=== PATIENT | male | born 1975 | race Caucasian/White ===

== ENCOUNTER 2018-01-20 06:08 | Day surgery (SDC) | payer OTHER ==
[2018-01-17 15:05] LABS: ALANINE AMINOTRANSFERASE 41 U/L (12-78); ALBUMIN 4.1 g/dL (3.4-5.0); ANION GAP 13 mmol/L (5-15); CALCIUM 8.7 mg/dL (8.5-10.1); CHLORIDE 98 mmol/L (98-107)
[2018-01-17 15:08] LABS: ALKALINE PHOSPHATASE 132 U/L (45-117); BILIRUBIN,TOTAL 0.8 mg/dL (0.2-1.0); CREATININE 1.31 mg/dL (0.7-1.3); TOTAL PROTEIN 8.6 g/dL (6.4-8.2)
[~2018-01-20] VITALS: Ht 177.8 cm; Wt 119.0 kg
[~2018-01-20 06:08] MED LIST: ALBU8.5H8 INH; AMLODIPINE PO; DIOVAN PO; LACT1CAP37 PO; OMEPRAZOLE PO
[2018-01-20 06:23] VITALS: BP 140/87
[2018-01-20] MEDS ORDERED: LACTATED RINGERS 1,000 ML IV SCH (06:27)
[2018-01-20] MEDS ORDERED: BUPIVACAINE/PF-EPI 0.5% 1:200K ONE (06:44)
[2018-01-20] MEDS ORDERED: FENTANYL PF 100 MCG/2ML ONE ×2 (07:12→09:11)
[2018-01-20] MEDS ORDERED: MIDAZOLAM 1 MG/ML, 2ML ONE (07:12)
[2018-01-20] MEDS ORDERED: NEOSTIGMINE 1 MG/ML, 10ML ONE (07:14)
[2018-01-20] MEDS ORDERED: SUCCINYLCHOLINE 20 MG/ML, 10ML ONE (07:14)
[2018-01-20] MEDS ORDERED: DEXAMETHASONE 4 MG/ML, 5ML ONE (07:14)
[2018-01-20] MEDS ORDERED: GLYCOPYRROLATE 0.2MG/1ML, 5ML ONE (07:14)
[2018-01-20] MEDS ORDERED: ROCURONIUM 10 MG/ML,10ML ONE (07:14)
[2018-01-20] MEDS ORDERED: ONDANSETRON 2MG/ML, 2ML ONE (07:14)
[2018-01-20] MEDS ORDERED: CEFAZOLIN 1,000 MG ONE (07:14)
[2018-01-20] MEDS ORDERED: PROPOFOL 10 MG/ML, 20ML ONE (07:14)
[2018-01-20] MEDS ORDERED: ALBUTEROL SULFATE 200 PUFFS/8.5 GR INH ONE (07:14)
[2018-01-20] MEDS ORDERED: FAMOTIDINE 20 MG TABLET PO ONE (07:30)
[2018-01-20] MEDS ORDERED: ONDANSETRON 2MG/ML, 2ML IVPush ONE (07:30)
[2018-01-20] MEDS ORDERED: OXYcodone IR 5MG TABLET PO ONE (07:30)
[2018-01-20] MEDS ORDERED: GABAPENTIN 300 MG CAPSULE PO ONE (07:30)
[2018-01-20] MEDS ORDERED: ACETAMINOPHEN 500 MG TABLET PO ONE (07:30)
[2018-01-20] MEDS ORDERED: BUPIVACAINE/PF-EPI 0.5% 1:200K INFIL ONE (07:55)
[2018-01-20] MEDS ORDERED: ONDANSETRON 2MG/ML, 2ML IV PRN (08:30)
[2018-01-20] MEDS ORDERED: HYDROcodone/APAP 7.5-325MG/15ML UDC PO PRN (08:30)
[2018-01-20] MEDS ORDERED: hydrALAzine 20 MG/ML, 1ML IV PRN (08:30)
[2018-01-20] MEDS ORDERED: PROMETHAZINE 25 MG/ML, 1ML IV PRN (08:30)
[2018-01-20] MEDS ORDERED: MIDAZOLAM 1 MG/ML, 2ML IV PRN (08:30)
[2018-01-20] MEDS ORDERED: ALBUTEROL SULFATE 2.5 MG/3 ML NPPB PRN (08:30)
[2018-01-20] MEDS ORDERED: HYDROmorphone 1 MG/ML, 1ML IV PRN (08:30)
[2018-01-20] MEDS ORDERED: MEPERIDINE/PF 25MG/0.5ML IVPush PRN (08:30)
[2018-01-20] MEDS ORDERED: LABETALOL 5MG/ML, 20ML IV PRN (08:30)
[2018-01-20] MEDS ORDERED: EPHEDRINE 50 MG/ML, 1ML IVPush PRN (08:30)
[2018-01-20] MEDS ORDERED: OXYcodone 5 MG/5 ML ORAL.SOL UDC PO PRN (08:30)
[2018-01-20] MEDS ORDERED: ALBUTEROL SULFATE 2.5 MG/3 ML ONE (08:51)
[2018-01-20] MEDS: FENTANYL PF 100 MCG/2ML IV PRN ×4 (09:13→09:45)
[2018-01-20] MEDS ORDERED: OXYcodone/APAP 5/325MG TABLET ONE (15:34)
== END 2018-01-20 17:57 ==
LOC: OUT 06:08
PROVIDERS: ATTEND Colon & Rectal Surgery
DX: K43.9 Ventral hernia without obstruction or gangrene (principal); K76.6 Portal hypertension; I83.90 Asymptomatic varicose veins of unspecified lower extremity; E66.01 Morbid (severe) obesity due to excess calories; J45.909 Unspecified asthma, uncomplicated; K21.9 Gastro-esophageal reflux disease without esophagitis; I10 Essential (primary) hypertension; K74.60 Unspecified cirrhosis of liver; Z98.890 Other specified postprocedural states; Z72.89 Other problems related to lifestyle; Z87.891 Personal history of nicotine dependence
CPT/HCPCS: 36415; 47379; 49652; 80053; 88307; 88313; 94640; J2405; J3010; J7120; J7613; S2900; J0690; J1100; J2250; J2704; J2710; J3490; J0330